=== PATIENT | female | born 1960 | race Caucasian/White ===

== ENCOUNTER 2018-08-22 08:42 | Emergency (ER) | payer MEDICARE ==
[~2018-08-22] VITALS: Ht 167.6 cm; Wt 72.6 kg
--- OUTSIDE RECORDS SUMMARY | 2018-08-22 08:45 | XMS REPORT | Clinical Summary ---
Author Author [facility] Organization [facility] Address Unknown Phone Unavailable Care Team Providers Care Hot Roll Laminator Name Role Phone Leann Nunn MD PCP Allergies Comments Active Allergy Reactions Severity Noted Date Vomiting Propoxyphene Other (See High 05/22/2016 N-Acetaminophen Comments) Medications End Date Status Medication Sig Dispensed Refills Start Date Active pregabalin (LYRICA) 100 Take 100 mg 0 MG capsule by mouth 2 (two) times a day. Active baclofen (LIORESAL) 10 MG 0 tablet 5 Active DULoxetine (CYMBALTA) 30 Take 30 mg by 0 MG capsule mouth. 7 Status Hospital, Clinic, or Ordered Dose Route Frequency Start End Date Other Facility Date Administered Medication Active methylPREDNISolone 80 mg IM once 05/26/19 acetate (DEPO-MEDROL) 17 injection 80 mgIndications: Chronic pain syndrome, Sacroiliac joint dysfunction of both sides Active iohexol (OMNIPAQUE) 240 3 mL IV once in imaging 05/26/19 mg iodine/mL injection 3 17 mLIndications: Chronic pain syndrome, Sacroiliac joint dysfunction of both sides Active dexamethasone (DECADRON) 8 mg OTHER every 6 hours 06/09/19 injection 8 17 mgIndications: Chronic pain syndrome, Postlaminectomy syndrome, lumbar region Active iohexol (OMNIPAQUE) 240 3 mL IV once in imaging 06/09/19 mg iodine/mL injection 3 17 mLIndications: Chronic pain syndrome, Postlaminectomy syndrome, lumbar region Active Problems Not on file Social History Date Tobacco Use Types Packs/Day Years Used Never Smoker Sex Assigned at Date Recorded Not on file Industry Job Start Date Occupation Not on file Not on file Not on file Travel End Travel History Travel Start No recent travel history available. Last Filed Vital Signs Not on file Plan of Treatment Health Maintenance Due Date Last Done Comments BREAST CANCER SCREENING 2012 COLONOSCOPY SCREENING 2012 SHINGLES VACCINES (#1) 2012 INFLUENZA VACCINE 09/26/2018 11/12/2015, 06/05/2014, 03/01/2010 Results Not on fileafter 08/21/2017 Insurance Type Payer Benefit Subscriber ID Effective Phone Address Plan / Dates Group [id number] ADVANTAGE resent [facility] Advance Directives Patient has advance care planning documents on file. For more information, savannah cartwright contact: Chris Zavala [address] [place] [address]
[2018-08-22] MEDS ORDERED: MECLIZINE HCL12.5 MG PO (09:55)
[2018-08-22 10:50] VITALS: BP 149/86
== END 2018-08-22 10:51 | disposition home or self-care (01) ==
LOC: ER 08:42
DX: H92.02 Otalgia, left ear (principal); H61.22 Impacted cerumen, left ear
CPT/HCPCS: 99282